=== PATIENT | male | born 1935 | race Caucasian/White ===

== ENCOUNTER → 2018-01-25 | Outpatient (REF) | payer SELFPAY | LOC: OLS.BROOKB | PROVIDERS: Visit Provider Family Medicine | DX: R05 Cough (principal) | CPT/HCPCS: 87070; 87205 ==

== ENCOUNTER → 2018-04-04 11:00 | Outpatient (REF) | payer MEDICARE, SELFPAY ==
[2018-04-04 13:22] LABS: Hemoglobin A1c 6.3 % (4.2-6.3)
== END ==
LOC: OLS.BROOKB 11:00
PROVIDERS: Visit Provider Family Medicine
DX: E11.9 Type 2 diabetes mellitus without complications (principal)
CPT/HCPCS: 36415; 83036